=== PATIENT | male | born 1995 | race Caucasian/White ===

== ENCOUNTER → 2017-10-23 | Outpatient (CLI) | payer BC, OTHER ==
--- NOTE | 2017-10-23 08:56 | DIAGNOSTIC IMAGING REPORT ---
SCROTAL ULTRASOUND CLINICAL HISTORY: Left-sided scrotal pain and swelling. COMPARISON STUDY: None. TECHNIQUE: Grayscale and color and duplex Doppler sonography of the scrotum was performed. FINDINGS: The right testis measures 4.6 x 3.5 x 2.1 cm and the left measures 4.7 x 3.2 x 2.4 cm. There is no testicular mass. Color flow within each testis is symmetric. There is no evidence for epididymitis. There is a 3 mm right epididymal cyst. There is no evidence for a varicocele by sonography. Vessels are within normal limits. A 5 mm left-sided scrotalith is present. IMPRESSION: 1. Normal sonographic appearance of the testes. 2. No evidence for epididymitis. 3. No sonographic evidence of a varicocele, veins at upper limits of normal for size. Electronically signed by: Ryan Meek M.D. 10/23/2017 8:54 AM Dictated Date/Time: 10/23/2017 8:50 AM
== END | disposition home or self-care (01) ==
LOC: C.ULTR 08:00
PROVIDERS: ATTEND Family Medicine
DX: N50.82 Scrotal pain (principal)